=== PATIENT | male | born 1985 | race Caucasian/White ===

== ENCOUNTER 2018-02-25 14:05 | Emergency (ER) | payer BC ==
[~2018-02-25] VITALS: Ht 167.6 cm; Wt 63.6 kg
[2018-02-25 15:03] VITALS: Ht 167.6 cm; Wt 63.6 kg
[2018-02-25] MEDS ORDERED: TORADOL10 MG PO (18:06)
[2018-02-25 18:47] VITALS: BP 133/94
[2018-03-26 08:41] VITALS: Ht 167.6 cm; Wt 63.6 kg
== END 2018-02-25 18:32 | disposition home or self-care (01) ==
LOC: D.ER 14:05
DX: K40.90 Unilateral inguinal hernia, without obstruction or gangrene, not specified as recurrent (principal); F17.200 Nicotine dependence, unspecified, uncomplicated

== ENCOUNTER 2018-03-26 07:45 | Day surgery (SDC) | payer BC ==
[2018-03-25 15:56] LABS: BASOPHILS 0.5 % (0-2); HEMATOCRIT 43.2 % (42.0-54.0); HEMOGLOBIN 15.5 g/dL (13.5-17.5); IMMATURE GRANULOCYTES 0.3 % (0-5); LYMPHOCYTES 26.4 % (15-50); MCH 34.8 pg (26.0-34.0); MCHC 35.9 g/dL (31.0-37.0); MCV 96.9 fL (80.0-100.0); MEAN PLATELET VOLUME 10.3 fL (7.4-10.4); MONOCYTES 8.1 % (2-11); NEUTROPHILS 62.7 % (40-80); PLATELET COUNT 224 10x3/uL (130-400); RBC 4.46 10x6/uL (4.20-6.10); RDW 11.6 % (11.5-14.5); WBC 6.7 10x3/uL (4.8-10.8)
[2018-03-25 16:12] LABS: ANION GAP 10.9 mmol/L (8-16); CALCIUM 8.4 mg/dL (8.5-10.1); CARBON DIOXIDE 28.4 mmol/L (21.0-32.0); CREATININE - SERUM 1.2 mg/dL (0.6-1.3); POTASSIUM - SERUM 4.3 mmol/L (3.5-5.1)
[~2018-03-26] VITALS: Ht 167.6 cm; Wt 60.8 kg
--- NOTE | ~2018-03-26 | OP ---
PATIENT NAME: JT GÓMEZ MEDICAL RECORD: [id number] :85 LOCATION:D.OPS ADMISSION DATE: SURGEON: EDDIE MONTENEGRO MD DATE OF OPERATION: 03/26/2018 PREOPERATIVE DIAGNOSES: 1. Left inguinal hernia. 2. Tobacco dependence syndrome. POSTOPERATIVE DIAGNOSES: 1. Left inguinal hernia. 2. Tobacco dependence syndrome. PROCEDURE: Left inguinal hernia repair with medium PHS mesh. SURGEON: Eddie Montenegro MD REPORT OF PROCEDURE: The patient's left groin was prepped and draped in sterile fashion. An oblique incision was made above the inguinal ligament. Electrocautery was used to dissect through the subcutaneous tissues down to the external oblique fascia. This fascia was incised with electrocautery down to the external ring. We elevated the spermatic cord and a Bartow was placed around it. The patient was noted to have a wide-based direct hernia defect encompassing most of the inguinal floor. I looked around for the ilioinguinal nerve and it was never visualized. We freed up the floor of the inguinal canal and was able to reduce the hernia back into the preperitoneal space of Retzius. This space was opened up in all directions and a medium PHS mesh was inserted. This was sutured down on all 4 sides using multiple interrupted 0 Vicryls. The wound was then irrigated out with normal saline and care was taken to assure there is no sign of any bleeding. At this point, the external oblique fascia was closed with running 2-0 Vicryl, Av's was closed with interrupted 3-0 Vicryl and the skin was closed with running subcutaneous 5-0 Monocryl. A 10 mL of 0.25% Marcaine with epinephrine was infused into the surrounding tissues and the wound was dressed appropriately. COMPLICATIONS: None. CONDITION: Stable. ANESTHESIA: General endotracheal and local. BLOOD LOSS: Minimal. TRANSINT:[id number] Voice Confirmation ID: [id number] DOCUMENT ID: [id number] EDDIE MONTENEGRO MD at 1110 CC: SIRISHA GOETZ APN [id number] DICTATION DATE: 03/26/18 1052 GRADER PATROL: 03/26/18 1214 [facility] 03/26/18 [place] [address]
[~2018-03-26 07:45] MED LIST: TORADOL10 MG PO
[2018-03-26 08:35] VITALS: BP 129/85; BMI 21.6
[2018-03-26 08:41] VITALS: BP 129/85; Ht 167.6 cm; Wt 60.8 kg
[2018-03-26] MEDS ORDERED: HYDROCODONE-APA1 TAB PO (10:48)
== END 2018-03-26 14:00 | disposition home or self-care (01) ==
LOC: D.OPS 07:45
PROVIDERS: Surgery
DX: K40.90 Unilateral inguinal hernia, without obstruction or gangrene, not specified as recurrent (principal); F17.200 Nicotine dependence, unspecified, uncomplicated; Z01.812 Encounter for preprocedural laboratory examination